=== PATIENT | female | born 1995 | race Caucasian/White ===

== ENCOUNTER 2023-12-04 07:34 | Outpatient (CLI) | payer OTHER, SELFPAY ==
--- NOTE | ~2023-12-04 | XR_ITS ---
CHEST RADIOGRAPH, PA AND LATERAL CLINICAL HISTORY: R05.9 - Cough, X COUPLE WEEKS . COMPARISON: 08/20/2015 TECHNIQUE: PA and lateral views of the chest. FINDINGS The cardiomediastinal silhouette is unremarkable. The lungs are clear. Visualized osseous structures and soft tissues are unremarkable. IMPRESSION: No focal infiltrate or effusion. Reviewed, dictated and finalized at location A.
== END 2023-12-04 07:35 | disposition home or self-care (01) ==
LOC: ANHIMG 07:39
PROVIDERS: PCP Nurse Practitioner Family; Visit Provider Nurse Practitioner Family
DX: R05.9 Cough, unspecified (principal)
CPT/HCPCS: 71046

== ENCOUNTER 2024-06-13 18:57 | Emergency (ER) | payer OTHER, SELFPAY ==
[2024-06-13] VITALS (12 sets, daily range): BP systolic 101–135; BP diastolic 60–77; PULSE 70; RESP 20; TEMP 36.6; O2SAT 96–100
[2024-06-13] MEDS: SODIUM CHLORIDE 0.9% IV 1,000 ML 999 ML IV CONT ×2 (20:52→21:15)
--- NOTE | 2024-06-13 20:53 | ED_ITS ---
HPI - General Adult General Chief complaint: Headache Stated complaint: Migraine-non stop vomiting Time Seen by Provider: 06/13/24 20:42 History of Present Illness HPI narrative: Patient is a 29-year-old female who presents to the emergency department this evening complaining of a headache associated with nausea and a few episodes of vomiting. Patient believes that she is dehydrated and needs IV fluids. States the headache is mild. Also complains of allergies lately and states that she did not take any of her allergy medications today. Admits to some sinus congestion. Denies any sudden worst headache of her life sensation, any recent illness, fevers or chills. No additional symptoms or concerns at this time. Related Data Allergies Allergy/AdvReac Type Severity Reaction Status Date / Time pollen Allergy Mild Congested Uncoded 06/13/24 18:58 Review of Systems Review of Systems: All systems are reviewed and are negative unless stated otherwise in the HPI. FORMERLY [facility], [facility] Past Medical History Medical History USP use of drug Depression Anxiety Family History Family History Father Hypertension Social History Social History Smoking status: Never smoker Alcohol intake: never Substance use: current Substance use type: marijuana Lack of Transportation: No Lack of Food: Never True Current Housing: I Have Housing Concerned About Future Housing: No Difficulty Paying Gas/Electric Bills: No Difficulty Paying for Meds: No Currently Unemployed: No Education: Master's Degree or Higher Difficulty w/ Childcare or Family Care: No Exam Narrative: General: Alert, awake, afebrile, in no acute distress. HEENT: PERRL, no rhinorrhea, no post nasal drip, oropharynx clear. Neck: Trachea midline, no JVD, no lymphadenopathy. Cardiovascular: Regular rate and rhythm, no murmurs, rubs or gallops, no peripheral edema. Respiratory: Clear to auscultation bilaterally, no tachypnea, no wheezing, no rhonchi, no rubs, no respiratory distress. Abdomen: Soft, nontender, nondistended, no rebound, no guarding, no peritoneal signs. Musculoskeletal: No joint swelling or deformity, normal muscle tone. Skin: No rashes or petechia, no signs of infection. Psychiatric: Alert and oriented, normal behavior and judgment for situation. Neurological: Alert and oriented to person, place, and time. Follows all commands. No focal deficits, speech is clear and fluent. Course Vital Signs Vital signs: Vital Signs Temperature 97.8 F 06/13/24 19:07 Pulse Rate 70 06/13/24 19:07 Respiratory Rate 20 06/13/24 19:07 Blood Pressure 135/77 06/13/24 19:07 Pulse Oximetry 98 06/13/24 19:07 Oxygen Delivery Room Air 06/13/24 19:07 Temperature 97.8 F 06/13/24 19:07 Pulse Rate 70 06/13/24 19:07 Respiratory Rate 20 06/13/24 19:07 Blood Pressure 135/77 06/13/24 19:07 Pulse Oximetry 98 06/13/24 19:07 Oxygen Delivery Room Air 06/13/24 19:07 Medical Decision Making MDM Narrative Medical decision making narrative: The patient was evaluated by myself in the emergency department. History is obtained from patient who is an independent historian and physical exam was performed. External medical records were reviewed at this time. IV was established and pertinent tests were ordered. Patient was administered 2 L IV fluid bolus with normal saline, 10 mg of IV Reglan, 25 mg of IV Benadryl and 1 g of oral Tylenol for headache. Differential diagnosis considerations include migraine headache, dehydration, acute viral syndrome, sinusitis. Comorbidities impacting this visit include history of seasonal allergies. I have evaluated and discussed social determinants of health with the patient that could potentially impact subsequent diagnosis and treatment plans. On repeat assessment of the patient, reevaluation revealed that the patient is doing well and is in no acute distress. Patient symptoms have improved since she arrived to our emergency department. Repeat vital signs were all reviewed and noted to be stable. Differential diagnosis and treatment plan were discussed with the patient at bedside. Patient agrees with discussion and after shared medical decision making agrees with discharge. All questions were answered to the patient's satisfaction. Patient will follow up with her PCP in 3-5 days. Patient was provided with strict return precautions and instructed to return to the emergency department if any new or worsening symptoms develop. The patient was discharged in stable condition. Vital Signs Vital Signs: Vital Signs Temperature 97.8 F 06/13/24 19:07 Pulse Rate 70 06/13/24 19:07 Respiratory Rate 20 06/13/24 19:07 Blood Pressure 135/77 06/13/24 19:07 Pulse Oximetry 98 06/13/24 19:07 Oxygen Delivery Room Air 06/13/24 19:07 Temperature 97.8 F 06/13/24 19:07 Pulse Rate 70 06/13/24 19:07 Respiratory Rate 20 06/13/24 19:07 Blood Pressure 135/77 06/13/24 19:07 Pulse Oximetry 98 06/13/24 19:07 Oxygen Delivery Room Air 06/13/24 19:07 Discharge Plan Discharge Clinical Impression: Headache, Nausea & vomiting Patient Disposition: Home Condition: Improved Instructions: Antibiotic Form, Acute Headache (ED), Acute Nausea and Vomiting (DC) Additional Instructions: Please follow-up with your family doctor within the next 3-5 days. Return to the emergency department if any new or worsening symptoms develop. Take the prescribed Zofran as needed for nausea/vomiting. Patient Language: Kittitian Prescriptions: New ondansetron 4 mg tablet,disintegrating 4 mg PO Q8H PRN (Reason: nausea and vomiting) Qty: 10 0RF No Action sertraline 50 mg tablet See Rx Instructions .ROUTE .COMPLEX Qty: 90 1RF Dose Instruction: TAKE 1 TABLET BY MOUTH EVERY DAY Rx Instructions: TAKE 1 TABLET BY MOUTH EVERY DAY Follow-up/Referrals: Letty Modi APRN [Primary Care Provider] - 3 Days Time of Disposition: 20:57
[2024-06-13] MEDS: ACETAMINOPHEN 500 MG TABLET 1000 MG PO (21:14)
[2024-06-13] MEDS: METOCLOPRAMIDE HCL INJ 10 MG/2 ML VIAL IV PUSH (21:15)
[2024-06-13] MEDS: diphenhydrAMINE HCl INJ 50 MG/ML VIAL 25 MG IV PUSH (21:15)
--- OUTSIDE RECORDS SUMMARY | 2024-06-14 15:11 | XMS_ITS | Clinical Summary ---
Author Organization [facility] Address [address] [place] [address] Care Team Providers Care Hardwood Floor Installer Name Role Phone Unavailable Primary Care Provider Unavailabl e Source Comments [facility],non-owned Affiliates and Associated Physician Practices is amultiple site organization consisting of ambulatory clinics and hospital sitesin [place], [place], [place] and [place]. This disclosure is being madepursuant to the Care Everywhere program and may not contain all information available regarding this patient. Last updated 17.[facility] [employer] Allergies No known active allergies Medications * Be aware that medications may not be up to date on this document. Alwaysverify current medications with the patient. 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 Family History Medical History Relation Name Comments Cancer Other aunt br cancer Other - Security And Compliance Analyst Sister sister had larg e fibroid and myomectomy age 25 Relation Name Status Comments Other aunt Sister Social History Tobacco Use Types Packs/Day Years Used Date Smoking Tobacco: Never Smokeless Tobacco: Never Alcohol Use Standard Drinks/Week Comments No 0 (1 standard drink = 0.6 oz pur e alcohol) Comments No Sex and Gender Information Value Date Recorded Sex Assigned at Not on file Legal Sex Female 12:04 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 Gender Identity Not on file Sexual Orientation Not on file Last Filed Vital Signs Vital Sign Reading Time Taken Comments Blood Pressure 130/80 07/26/2020 11:41 AM CDT Pulse 70 03/11/2015 3:13 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 Temperature - - Respiratory Rate - - Oxygen Saturation - - Inhaled Oxygen Concentration - - Weight 82.6 kg (182 lb) 07/26/2020 11:41 AM CDT Height 170.2 cm (5' 7 ) 07/22/2019 11:23 AM CDT Body Mass Index 28.51 07/22/2019 11:23 AM CDT Plan of Treatment Health Maintenance Due Date Last Done Comments DTAP/TDAP/TD VACCINES (1 - Tdap) 01/30/2015 HEPATITIS B VACCINE (1 of 3 - 19+ 3-dose series) 01/30/2015 COVID-19 VACCINE ( - 2023-2 5 season) 2023 DEPRESSION SCREENING 02/13/2024 INFLUENZA VACCINE (Season Ended) 2024 ZOSTER VACCINE (1 of 2) 01/30/2046 HEPATITIS C SCREENING Completed 07/22/2019 HIV SCREENING Completed 07/22/2019 HIB VACCINE Aged Out No longer eligi ble based on patient's age to complete this topic HPV VACCINE Aged Out No longer eligi ble based on patient's age to complete this topic MENINGOCOCCAL (Group B) VACC INE SHARED DECISION-MAKING Aged Out No longer eligibl e based on patient's age to complete this topic MENINGOCOCCAL GROUPS A/C/Y/W VACCINE Aged Out No longer eligible b ased on patient's age to complete this topic PNEUMOCOCCAL VACCINE Aged Out No long er eligible based on patient's age to complete this topic Procedures Procedure Name Priority Date/Time Associated Diagnosis Comments HEPATITIS SCREEN ACUTE Routine 07/22/2019 12:00 AM CDT Exposure to STD HIV-1 HIV-2 ANTIBODY + HIV P24 AG PANEL Routine 07/22/2019 12:00 AM CDT Exposure to STD from Last 3 Months or Most Recently Relevant to Health Maintenance Results * HIV-1 HIV-2 ANTIBODY + HIV P24 AG PANEL (07/22/2019 12:00 AM CDT) HIV Screen 4th Generation w Reflex Non Reactive Non Reactive [facility] ACCOUNT BILL Comment:FASTING Blood BLOOD SPECIMEN / Unknown 07/22/2019 07/22/2019 Narrative Resulting Agency Comment Lab Testing performed at: [facility] [place] [address] [id number] Hugh Reinoso MD LAB - CHEMISTRY ORDERABLES F inal Result Performing Organization Address City/[facility] Co de Phone Number [facility] ACCOUNT BILL [address] [place] [address] * HEPATITIS SCREEN ACUTE (07/22/2019 12:00 AM CDT) Hepatitis A Virus Antibody IgM Negative Negative [facility] ACCOUNT BILL Hepatitis B Virus Surface Antigen Negative Negative [facility] ACCOUNT BILL Hepatitis B Core Virus Antibody IgM Negative Negative [facility] ACCOUNT BILL Hepatitis C Antibody <0.1 0.0 - 0.9 s/co ratio [facility] ACCOUNT BILL Comment: Negative: < 0.8 Indeterminate: 0.8 - 0.9 Positive: > 0.9 . The CDC recommends that a positive HCV antibody result be followed up with a HCV Nucleic Acid Amplification test (145777). FASTING Blood BLOOD SPECIMEN / Unknown 07/22/2019 07/22/2019 Narrative Resulting Agency Comment Lab Testing performed at: [facility] [address] [facility] [facility] [id number] Hugh Reinoso MD LAB - CHEMISTRY ORDERABLES F inal Result Performing Organization Address City/[facility] Co de Phone Number [facility] ACCOUNT BILL [address] [place] [address] from Last 3 Months or Most Recently Relevant to Health Maintenance Insurance Member Subscriber Plan / Payer (Ef fective 2002-Present) Name:Emely Mathis Relation to Subscriber:Child Name:DELMADDIE Date of :1964 (Home) Address: [address] [place] [address] Payer ID:[id number] (NAIC) Type:PPO Address: [address] [place] [phone] ANTH Member Subscriber Plan / Payer ( fective 2002-Present) Name:Emely Mathis Relation to Subscriber:Child Name:MADDIE MATHIS Date of :1964 (Home) Address: [facility] [place] [address] Payer ID:[id number] (NAIC) Type:PPO Address: [facility] [id number] [place] [phone] * Guarantor: EMELY MATHIS Account Type Relation to Patient Date of Phone Billing Address Personal/Family [address] [place] [address]
--- OUTSIDE RECORDS SUMMARY | 2024-06-14 15:11 | XMS_ITS | Referral Summary ---
Author Organization [facility] Address [address] [place] [address] Care Team Providers Care Home Connect Lpn Name Role Phone No, Physician Primary Care Provider [phone] Allergies No known active allergies Medications sertraline (ZOLOFT) 50 mg tablet Take 1 tablet (50 mg total) by mouth daily 07/26/2023 Active Active Problems Problem Noted Date Diagnosed Date Yeast vaginitis 08/03/2023 Assessment & Plan (08/03/2023 2:56 PM CDT): S/p PCP office visit last week with neg vaginitis swab for yeast, BV, trich. No sx's today. Eats yogurt, takes probiotic routinely. Works out and changes clothes 3x/day on average to minimize any damp conditions. Random BG today- 88 On exam, pt explaining the location of sx's predominately at periuneum and along the medial aspect of the labia minora bilaterally. - encouraged usage of topical nystatin/steroid cream the pt already has at home and to begin usage at sx onset. - cont with vulvar hygiene and include consideration of not wearing underwear at night or at home on weekends with dresses; use cool setting of blow dryer to help with chafing this area if already irritated - consider trial using probiotics listed in the AVS - note the pt has recently returned back on a SSRI to help with anxiety and depression mood sx's which she went off of around a year ago being uncertain if helping but at this point in life, feels she needed them back and is starting to feel an improved mood (h/o OCD dx'ed when 10; h/o recurrent UTI sx's in young adult life which seemingly resolved after SSRI started) - to continue to call us if feels sx's are returning frequently Vaginal itching 06/19/2023 Chest pain 10/21/2015 Overview (05/18/2016): Chest pain, unspecified type Generalized abdominal pain 10/21/2015 Overview (05/18/2016): Generalized abdominal pain Gastroesophageal reflux disease without esophagi tis 10/21/2015 Overview (05/18/2016): Gastroesophageal reflux disease without esophagitis 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 Monthly or less 10/10/2023 Q2: How many drinks containi ng alcohol do you have on a typical day when you are drinking? 1 or 2 10/10/2023 Q3: How often do you have si x or more drinks on one occasion? 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 Gender Identity Not on file Sexual Orientation Not on file Last Filed Vital Signs Vital Sign Reading Time Taken Comments Blood Pressure 116/77 10/10/2023 4:06 PM CDT Pulse 72 02/03/2016 3:56 PM MANAGER SOCIAL MEDIA Temperature - - Respiratory Rate - - Oxygen Saturation - - Inhaled Oxygen Concentration - - Weight 75.3 kg (166 lb) 10/10/2023 4:06 PM CDT Height 167.6 cm (5' 6 ) 08/03/2023 2:07 PM CDT Body Mass Index 26.79 08/03/2023 2:07 PM CDT Plan of Treatment Not on file Procedures Procedure Name Priority Date/Time Associated Diagnosis Comments PAP WITH REFLEX TO HIGH RISK HPV Routine 10/10/2023 4:44 PM CDT Well woman exam from Last 3 Months or Most Recently Relevant to Health Maintenance Results * Pap with reflex to High Risk HPV and Genotyping (Cytology Component) (10/10/2023 4:44 PM CDT) Thin prep (Pap test) 10/10/2023 4:44 PM CDT 10/10/2023 7:23 PM CDT Narrative PATHOLOGY [facility] - 10/18/2023 3:34 PM CDT EPIC results best viewed via link to PDF [facility] [place] [address] Note to Patients: This report may contain a detailed description of human tissue sent by a health care provider to the laboratory for pathologic evaluation. The content of this report is essential for diagnosis and may provide important critical findings. This information may be unfamiliar to patients to review without a medical professional present. It is advised that the patient review this report in the presence of a health care provider who can answer questions and explain the details. CYTOPATHOLOGY REPORT FINAL Patient Name: EMELY MATHIS Gender: F : 1995 (Age: 28) Address: [address] [place] [id number] Hospital #: [id number] Service: COUNT TEAM MEMBER Location: Patient Type: [facility] SPECIMEN Taken: 10/10/2023 Received: 10/10/2023 Accessioned: 10/11/2023 Reported: 10/18/2023 Physician(s): Elaine Chow NP FINAL INTERPRETATION SOURCE OF SPECIMEN Liquid based Thin Prep pap with Reflex HPV: STATEMENT OF ADEQUACY - Satisfactory for evaluation - Endocervical cells/transformation zone sample present GENERAL CATEGORIZATION: - Negative for squamous intraepithelial lesion or malignancy INTERPRETATION: - Reactive cellular changes - Fungal organisms morphologically consistent with yovana species pamo/10/18/2023 07:51 By this signature, I attest that the above diagnosis is based upon my personal examination of the slides(and/or other material indicated in the diagnosis). Chaparro Del Cid M.D. Report Electronically Reviewed and Signed Out By Chaparro Del Cid M.D. 10/18/2023 15:34:30 MARIA GUADALUPE Irizarry (ASCP) Cervicovaginal Cytology (Pap Test) Disclaimer: The Pap test is a screening test used to detect cervical cancer and its precursors; it is not a diagnostic procedure. False negative and false positive results do occur. Pap test results should be interpreted in the context of pertinent clinical information and biopsy results as indicated. [facility] Clinical Laboratory Improvement Amendments (CLIA) mandate that cytologic and histologic results be correlated for laboratory director quality systems & improvement standards. FOR ALL HIGH-GRADE CASES we request submission of follow-up histological material and/or reports that have not been previously provided so that we may fulfill said required standards. Gross Description A. Liquid based Thin Prep pap with Reflex HPV: Cervical/vaginal - Screening ThinPrep Clinical Diagnosis and History Last Menstrual Period: 10/05/23 Contraceptive History: No Screening Report Images and scanned documents, if included only viewable in PDF version The performance characteristics of some immunohistochemical stains, in-situ hybridization and fluorescence in-situ hybridization tests and immunophenotyping by flow cytometry cited in this report (if any) were determined by the Surgical Pathology Department at [facility] as part of an ongoing principal quality engineer program and in compliance with federally mandated regulations drawn from the Clinical Laboratory Improvement Act of 1988 (CLIA '88). Some of these tests rely on the use of analyte specific reagents and are subject to specific labeling requirements by the US Food and Drug Administration. Such diagnostic tests may only be performed in a facility that is certified by the Department of Health and Human Services as a high complexity laboratory under CLIA '88. The FDA has determined that such clearance or approval is not necessary. This test is used for clinical purposes. It should not be regarded as investigational or for research. Nevertheless, federal rules concerning the medical use of analyte specific reagents require that the following disclaimer be attached to the report: This test was developed and its performance characteristics determined by the Surgical Pathology Department of [facility]. It has not been cleared or approved by the U. S. Food and Drug Administration. Elaine Micaela Claudine PLATING TECHNICIAN LAB CYTOLOGY ORDERAB LES Final Result PATHOLOGY [facility] [address] [place], [place] [phone] from Last 3 Months or Most Recently Relevant to Health Maintenance Insurance [facility] CHOICE PLUS [facility] CHOICE PLUS Care Teams Home Connect Lpn Relationship Specialty Start Date End Date No, Physician PCP - General 09/26/21
--- OUTSIDE RECORDS SUMMARY | 2024-06-14 15:11 | XMS_ITS | Clinical Summary ---
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 Surgical History Surgery Date Site/Laterality Comments TYMPANOSTOMY TUBE PLACEMENT Medical History Medical History Date Comments Hx Other Medical abdominal pain, GERD; Comments: MAF 10/21/2015 - Anxiety Family History Medical History Relation Name Comments No Known Problems Father No Known Problems Mother Heart disease Other 1 Family history of Cardiovascular disease; Other Other 2 No family histo ry of Cardiovascular disease; Relation Name Status Comments Father Alive Mother Alive Other 1 Other 2 Social History Tobacco Use Types Packs/Day Years [...] on file Legal Sex Female 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 Gender Identity Not on file Sexual Orientation Not on file Obstetrics History Para Term AB IAB SAB Ectopic Multiple Livin g Live Births 0 0 0 0 0 0 0 0 0 0 0 Last Filed Vital Signs Vital Sign Reading Time Taken Comments Blood Pressure 116/77 10/10/2023 4:06 PM CDT Pulse 72 02/03/2016 3:56 PM TANK BOTTOM ASSEMBLER Temperature - - Respiratory Rate - - Oxygen Saturation - - Inhaled Oxygen Concentration - - Weight 75.3 kg (166 lb) 10/10/2023 4:06 PM CDT Height 167.6 cm (5' 6 ) 08/03/2023 2:07 PM CDT Body Mass Index 26.79 08/03/2023 2:07 PM CDT Plan of Treatment Health Maintenance Due Date Last Done Comments Depression Screening 1995 Hepatitis C Screening 1995 Varicella Vaccines (2 of 2 - 2-dose childhood series) 12/08/2008 09/15/2008 Hepatitis B Screening 01/30/2014 Covid-19 Vaccine ( season) 2023 09/15/2021, 01/27/2021, 05/04/2020, Additional history exists Cervical Cancer Screening 10/09/2024 10/10/2023 Regular Well Visit/Exam 18-64 10/09/2024 10/10/2023, 09/28/2022, 09/26/2021 Influenza Vaccine (Season Ended) 2024 04/03/2013 DTaP/Tdap/Td Vaccine (3 - Td or Tdap) 08/19/2030 08/19/2020, 09/16/2007 HPV Vaccines Completed 09/15/2009, 11/12, 09/15/2008 Pneumococcal vaccine <65 Aged Out No longer eligible based on patient's age to complete [...] CDT 10/10/2023 7:23 PM CDT Narrative PATHOLOGY [facility] - 10/18/2023 3:34 PM CDT EPIC results best viewed via link to PDF [facility] [place] [address] Note to Patients: This report may contain [...] REPORT FINAL Patient Name: EMELY MATHIS Gender: Anant : 1995 (Age: 28) Address: [address] [place] [id number] Hospital #: [id number] Service: PATIENT COORDINATOR Location: Patient Type: [facility] SPECIMEN Taken: 10/10/2023 Received: 10/10/2023 Accessioned: 10/11/2023 [...] clinical information and biopsy results as indicated. [facility] Clinical Laboratory Improvement Amendments (CLIA) mandate that cytologic and histologic results be correlated for laboratory quality lab technician & improvement standards. FOR ALL HIGH-GRADE CASES [...] determined by the Surgical Pathology Department at [facility] as part of an ongoing clinical quality assurance specialist program and in compliance with federally mandated [...] determined by the Surgical Pathology Department of [facility]. It has not been cleared or approved by the U. S. Food and Drug Administration. Elaine Chow NP LAB CYTOLOGY ORDERAB LES Final Result PATHOLOGY [facility] 3rd Floor [place], [place] [phone] from Last 3 Months or Most Recently Relevant to Health Maintenance Insurance [facility] CHOICE [facility]US [facility] H[facility]/PPO Address: [address] [address] [place] [address] [facility] CHOICE PLUS [facility] H[facility]/PPO Address: [address] [address] [place] [id number] Care Teams Filler Operator Relationship Specialty Start Date End Date No, Physician PCP - General 09/26/21
--- OUTSIDE RECORDS SUMMARY | 2024-06-14 15:32 | XMS_ITS | Referral Summary ---
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 Gender Identity Not on file Sexual Orientation Not on file Last Filed Vital Signs Vital Sign Reading Time Taken Comments Blood Pressure 116/77 10/10/2023 4:06 PM CDT Pulse 72 02/03/2016 3:56 PM DIGITAL MARKETING SPECIALIST Temperature - - Respiratory Rate - - [...] CDT 10/10/2023 7:23 PM CDT Narrative PATHOLOGY [facility] - 10/18/2023 3:34 PM CDT EPIC results best viewed via link to PDF [facility] [place] [address] Note to Patients: This report may contain [...] Gender: F : 1995 (Age: 28) Address: [address] [place] [phone] Hospital #: [id number] 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 [facility] Clinical Laboratory Improvement Amendments (CLIA) mandate that cytologic and histologic results be correlated for laboratory quality improvement consultant & improvement standards. FOR ALL HIGH-GRADE CASES [...] determined by the Surgical Pathology Department at [facility] as part of an ongoing customer quality engineer program and in compliance with [...] determined by the Surgical Pathology Department of [facility]. It has not been cleared or approved by the U. S. Food and Drug Administration. Elaine Micaela Claudine LIQUIFIED NATURAL GAS SPECIALIST LAB CYTOLOGY ORDERAB LES Final Result PATHOLOGY [facility] 3rd Floor [place], [place] [phone] from Last 3 Months or Most Recently Relevant to Health Maintenance Insurance [facility] H[facility]/PPO Address: [address] [address] [place] [address] [facility] HMO/PPO Address: [address] [address] [place] [address] Care Teams Pompom Maker Relationship Specialty Start Date End Date No, Physician PCP - General 09/26/21
--- OUTSIDE RECORDS SUMMARY | 2024-06-14 15:32 | XMS_ITS | Clinical Summary ---
Author Organization [facility] Address [address] [address] Care Team Providers Care Welfare Officer Name Role Phone Unavailable Primary Care Provider Unavailabl e Source Comments [facility],non-owned Affiliates and Associated Physician Practices is amultiple site organization consisting of ambulatory clinics and hospital sitesin [place], [place], [place] and [place]. This disclosure is being madepursuant to the Care Everywhere program and may not contain all information available regarding this patient. Last updated 17.[facility] Prelert Allergies No known active allergies Medications * Be aware that medications may not be up to date on this document. Alwaysverify current medications with the patient. 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 Gender Identity Not on file Sexual Orientation Not on file Last Filed Vital Signs Vital Sign Reading Time Taken Comments Blood Pressure 130/80 07/26/2020 11:41 AM CDT Pulse 70 03/11/2015 3:13 PM MILLER HEAD WET PROCESS Temperature - - Respiratory Rate - - [...] Agency Comment Lab Testing performed at: [facility] [address] [id number] Hugh Reinoso MD LAB - CHEMISTRY ORDERABLES F inal Result Performing Organization Address [facility] Co de Phone Number [facility] ACCOUNT BILL [address] [place] [address] * HEPATITIS SCREEN ACUTE (07/22/2019 12:00 AM [...] with a HCV Nucleic Acid Amplification test (143599). FASTING Blood BLOOD SPECIMEN / Unknown 07/22/2019 07/22/2019 Narrative Resulting Agency Comment Lab Testing performed at: [facility] [place] [address] [id number] Hugh Reinoso MD LAB - CHEMISTRY ORDERABLES F inal Result Performing Organization Address [facility] Co de Phone Number [facility] ACCOUNT BILL [address] [place] [address] from Last 3 Months or Most Recently Relevant to Health Maintenance Insurance Member Subscriber Plan / Payer (Ef fective 2002-Present) Name:Emely Mathis Relation to Subscriber:Child Name:DELMADDIE Date of :1964 (Home) Address: [address] [place] [address] Payer ID:[id number] (NAIC) Type:PPO Address: [address] [place] [phone] ANTH Member Subscriber Plan / Payer ( fective 2002-Present) Name:Emely Mathis Relation to Subscriber:Child Name:MADDIE MATHIS Date of :1964 (Home) Address: [facility] [place] [address] Payer ID:[id number] (NAIC) Type:PPO Address: [facility] [id number] [place] [phone] * Guarantor: EMELY MATHIS Account Type Relation to Patient Date of Phone Billing Address Personal/Family 1995 [facility] [place] [address]
--- OUTSIDE RECORDS SUMMARY | 2024-06-14 15:32 | XMS_ITS | Clinical Summary ---
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 Gender Identity Not on file Sexual Orientation Not on file Obstetrics History Para Term AB IAB SAB Ectopic Multiple Livin g Live Births 0 0 0 0 0 0 0 0 0 0 0 Last Filed Vital Signs Vital Sign Reading Time Taken Comments Blood Pressure 116/77 10/10/2023 4:06 PM CDT Pulse 72 02/03/2016 3:56 PM CLEANING MAID Temperature - - Respiratory Rate - - [...] CDT 10/10/2023 7:23 PM CDT Narrative PATHOLOGY [facility] - 10/18/2023 3:34 PM CDT EPIC results best viewed via link to PDF [facility] [place] [address] Note to Patients: This report may contain [...] Gender: Anant : 1995 (Age: 28) Address: [address] [place] [phone] Hospital #: [id number] Service: INSPECTOR CASING Location: Patient Type: [facility] SPECIMEN Taken: 10/10/2023 Received: 10/10/2023 Accessioned: [...] clinical information and biopsy results as indicated. [facility] Clinical Laboratory Improvement Amendments (CLIA) mandate that cytologic and histologic results be correlated for laboratory quality assurance assistant & improvement standards. FOR ALL HIGH-GRADE CASES [...] determined by the Surgical Pathology Department at [facility] as part of an ongoing coding quality coordinator program and in compliance with federally mandated [...] determined by the Surgical Pathology Department of [facility]. It has not been cleared or approved by the U. S. Food and Drug Administration. Elaine Chow NP LAB CYTOLOGY ORDERAB LES Final Result PATHOLOGY [facility] 3rd Floor [place], [place] [phone] from Last 3 Months or Most Recently Relevant to Health Maintenance Insurance [facility] CHOICE PLUS [facility] CHOICE PLUS [place] [id number] Care Teams Biological Sciences Professor Relationship Specialty Start Date End Date No, Physician PCP - General 09/26/21
== END 2024-06-13 23:00 | disposition home or self-care (01) ==
LOC: ANHED 21:09
PROVIDERS: Emergency Provider Emergency Medicine; PCP Nurse Practitioner Family
DX: R51.9 Headache, unspecified (principal); R11.2 Nausea with vomiting, unspecified; F41.9 Anxiety disorder, unspecified; F32.A Depression, unspecified; Z79.899 Other long term (current) drug therapy
CPT/HCPCS: 96361; 96374; 96375; 99284; A9270; J1200; J2765; J7030